=== PATIENT | female | born 1970 | race Caucasian/White ===

== ENCOUNTER 2017-11-27 00:13 | Observation (INO) ==
--- NOTE | 2017-11-27 00:28 | ED ---
HPI General Chief complaint: Syncope Stated complaint: medical Time Seen by Provider: 11/27/17 00:20 Source: patient Mode of arrival: ambulatory Limitations: no limitations History of Present Illness HPI narrative: 47yo F with PMH of polycystic ovaries was brought in by her coworker from L&D for syncope. Pt told her coworker she was not feeling well after vomiting and her coworker checked her pulse and it was 150 and then she passed out in her arms for a second. Pt is now awake and alert, said she is still nauseous but feels better. Denies any fever, chest pain, sob, abdominal pain, focal weakness or numbness. Pt had gastric band in 2009. Denies any cardiac history. Related Data Home Medications Medication Instructions Recorded Confirmed No Known Home Medications 11/27/17 11/27/17 Allergies Allergy/AdvReac Type Severity Reaction Status Date / Time No Known Allergies Allergy Unverified 11/27/17 00:27 Review of Systems ROS: all other systems reviewed are negative [facility] Medical History Medical History Hx of renal calculi (Acute) Surgical History Surgical History Hx of section (Acute) Hx of laparoscopic gastric banding (Acute) Social History Social History Substance History: No History of Abuse Second Hand Smoke Exposure: Yes Smoking Status: Current every day smoker Tobacco Type: Cigarettes How Often Do You Have a Drink Containing Alcohol: Monthly or less Recent Travel in [facility] within the Last 8 Weeks: No Recent Out of Country Travel within the Last 8 Weeks: No Exam Narrative Exam Narrative: GENERAL: 47yo F in mild distress. SKIN: Focused skin assessment warm/dry. HEAD: Atraumatic. Normocephalic. EYES: Pupils equal and round at 3mm bilaterally. EOMI. ENT: No nasal bleeding or discharge. Mucous membranes pink and moist. NECK: Trachea midline. No JVD. CARDIOVASCULAR: Regular rate and rhythm. No murmur appreciated. RESPIRATORY: No accessory muscle use. Clear to auscultation. Breath sounds equal bilaterally. GASTROINTESTINAL: Abdomen soft, non-tender, nondistended. MUSCULOSKELETAL: No obvious deformities. No clubbing. No cyanosis. No edema. NEUROLOGICAL: Awake and alert. No obvious cranial nerve deficits. Motor grossly within normal limits in all extremities. Sensation intact. Normal speech. PSYCHIATRIC: Appropriate mood and affect; insight and judgment normal. Course Initial Documented Vital Signs Temperature 98.3 F 11/27/17 00:18 Pulse Rate 83 11/27/17 00:18 Respiratory Rate 18 11/27/17 00:18 Blood Pressure 123/79 11/27/17 00:18 Pulse Oximetry 100 11/27/17 00:18 Last Documented Vital Signs Temperature 98.4 F 11/27/17 19:56 Pulse Rate 64 11/27/17 19:56 Respiratory Rate 19 11/27/17 19:56 Blood Pressure 118/69 11/27/17 19:56 Pulse Oximetry 98 11/27/17 19:56 Medical Decision Making MDM Narrative Medical decision making narrative: 47yo F was brought down from L&D after vomiting, and having a syncopal episode. Pt's heart rate was normal when she arrived in the ED. Diffuse ST depressions on EKG. Labs reviewed, WBC 11.6. H/ H low at 7.8/26.3, said that is slightly lower than her baseline. Potassium is low at 2.6. Pt given zofran and then 25mEq KCl PO. Also started pt on 20mEq of KCl IV. Pt then vomited again and given reglan. Pt still has a second 20mEq KCl IV but is vomiting so will observed her on telemetry. Pt is complaining of mild headache that feels like her usual headache and GERD. Given acetaminophen. Discussed with resident physician and accepted to Dr. Kapadia' s service. Medical Screen Exam Complete: Yes Emergency Medical Condition: Yes Differential Diagnosis Differential Diagnosis: SVT resolved vs. dehydration vs. electrolyte abnormality Lab Data Result diagrams: 11/27/17 19:08 11/27/17 10:07 Lab Results 11/27/17 11/27/17 11/27/17 Range/Units 00:25 00:25 10:07 WBC 11.6 H (4.0-11.0) th/mm3 RBC 4.23 (4.00-5.30) mil/mm3 Hgb 7.8 L (11.6-15.3) gm/dL Hct 26.3 L (35.0-46.0) % MCV 62.1 L (80.0-100.0) fL MCH 18.5 L (27.0-34.0) pg MCHC 29.7 L (32.0-36.0) % RDW 19.8 H (11.6-17.2) % Plt Count 531 H (150-450) th/mm3 MPV 7.3 (7.0-11.0) fL Neut % (Auto) 59.1 (16.0-70.0) % Lymph % (Auto) 30.7 (9.0-44.0) % Patrick % (Auto) 5.3 (0.0-8.0) % Eos % (Auto) 4.0 (0.0-4.0) % Baso % (Auto) 0.9 (0.0-2.0) % Neut # (Auto) 6.8 (1.8-7.7) th/mm3 Lymph # (Auto) 3.5 (1.0-4.8) th/mm3 Patrick # (Auto) 0.6 (0.0-0.9) th/mm3 Eos # (Auto) 0.5 H (0.0-0.4) th/mm3 Baso # (Auto) 0.1 (0.0-0.2) th/mm3 WBC Differential . Differential Comment Auto diff final Sodium 142 146 H (136-145) meq/L Potassium 2.6 L* 3.5 D (3.5-5.1) meq/L Chloride 101 110 H D (98-107) meq/L Carbon Dioxide 28.4 27.3 (21.0-32.0) meq/L Anion Gap 13 9 (5-15) meq/L BUN 14 11 (7-18) mg/dL Creatinine 0.74 0.47 L (0.50-1.00) mg/dL Estimated GFR 84 L Greater than 89 (>89) mL/min Random Glucose 77 67 L (74-106) mg/dL Calcium 9.5 8.2 L D (8.5-10.1) mg/dL Magnesium 1.5 (1.5-2.5) mg/dL Troponin I Less than 0.02 L (0.02-0.05) ng/mL Lipase 153 (73-393) U/L TSH (0.358-3.740) uIU/mL Blood Type Antibody Screen MTS Gel Crossmatch 11/27/17 11/27/17 11/27/17 Range/Units 10:07 10:07 11:40 WBC 9.5 (4.0-11.0) th/mm3 RBC 3.51 L (4.00-5.30) mil/mm3 Hgb 6.6 L* (11.6-15.3) gm/dL Hct 22.2 L (35.0-46.0) % MCV 63.3 L (80.0-100.0) fL MCH 18.7 L (27.0-34.0) pg MCHC 29.6 L (32.0-36.0) % RDW 20.1 H (11.6-17.2) % Plt Count 352 D (150-450) th/mm3 MPV 7.2 (7.0-11.0) fL Neut % (Auto) 67.9 (16.0-70.0) % Lymph % (Auto) 21.8 (9.0-44.0) % Patrick % (Auto) 4.7 (0.0-8.0) % Eos % (Auto) 5.0 H (0.0-4.0) % Baso % (Auto) 0.6 (0.0-2.0) % Neut # (Auto) 6.4 (1.8-7.7) th/mm3 Lymph # (Auto) 2.1 (1.0-4.8) th/mm3 Patrick # (Auto) 0.4 (0.0-0.9) th/mm3 Eos # (Auto) 0.5 H (0.0-0.4) th/mm3 Baso # (Auto) 0.1 (0.0-0.2) th/mm3 WBC Differential . Differential Comment Auto diff final Sodium (136-145) meq/L Potassium (3.5-5.1) meq/L Chloride (98-107) meq/L Carbon Dioxide (21.0-32.0) meq/L Anion Gap (5-15) meq/L BUN (7-18) mg/dL Creatinine (0.50-1.00) mg/dL Estimated GFR (>89) mL/min Random Glucose (74-106) mg/dL Calcium (8.5-10.1) mg/dL Magnesium 1.5 (1.5-2.5) mg/dL Troponin I Less than 0.02 L (0.02-0.05) ng/mL Lipase (73-393) U/L TSH 2.250 (0.358-3.740) uIU/mL Blood Type Antibody Screen MTS Gel Crossmatch 11/27/17 11/27/17 11/27/17 Range/Units 19:08 19:08 20:23 WBC (4.0-11.0) th/mm3 RBC (4.00-5.30) mil/mm3 Hgb 6.9 L* (11.6-15.3) gm/dL Hct 23.6 L (35.0-46.0) % MCV (80.0-100.0) fL MCH (27.0-34.0) pg MCHC (32.0-36.0) % RDW (11.6-17.2) % Plt Count (150-450) th/mm3 MPV (7.0-11.0) fL Neut % (Auto) (16.0-70.0) % Lymph % (Auto) (9.0-44.0) % Patrick % (Auto) (0.0-8.0) % Eos % (Auto) (0.0-4.0) % Baso % (Auto) (0.0-2.0) % Neut # (Auto) (1.8-7.7) th/mm3 Lymph # (Auto) (1.0-4.8) th/mm3 Patrick # (Auto) (0.0-0.9) th/mm3 Eos # (Auto) (0.0-0.4) th/mm3 Baso # (Auto) (0.0-0.2) th/mm3 WBC Differential Differential Comment Sodium (136-145) meq/L Potassium (3.5-5.1) meq/L Chloride (98-107) meq/L Carbon Dioxide (21.0-32.0) meq/L Anion Gap (5-15) meq/L BUN (7-18) mg/dL Creatinine (0.50-1.00) mg/dL Estimated GFR (>89) mL/min Random Glucose (74-106) mg/dL Calcium (8.5-10.1) mg/dL Magnesium (1.5-2.5) mg/dL Troponin I (0.02-0.05) ng/mL Lipase (73-393) U/L TSH (0.358-3.740) uIU/mL Blood Type B Positive B Positive Antibody Screen Negative MTS Gel Crossmatch See Detail ECG Data EKG Prior to Arrival: No Attestation: I personally reviewed and interpreted this ECG as follows: Interpretation: NSR 90bpm. Normal axis. ST depression diffusely. Discharge Plan Discharge Disposition Patient Disposition: 30 Still Patient Discharge Condition Condition: Stable Discharge Order Discharge Orders: Discharge Order (Routine); Ordered 11/27/17 Ordered By: Annie Sparks Discharge Details Anticipated Discharge Date: 11/27/17 Diagnosis: Acute hypokalemia Physicians Team ED Provider: Jennifer Copeland Primary Care Provider: Rosalva Kapadia Attending Provider: Rosalva Kapadia Status ED Status: Left Department Discharge Information Discharge Date/Time: 11/27/17 08:00
[2017-11-27] MEDS ORDERED: Sod Chloride 0.9% Inj 1,000 ML IV.SIG SCH ×2 (00:30→03:00)
[2017-11-27 00:49] LABS: Baso # (Auto) 0.1 th/mm3 (0.0-0.2); Baso % (Auto) 0.9 % (0.0-2.0); Eos # (Auto) 0.5 th/mm3 (0.0-0.4); Hematocrit 26.3 % (35.0-46.0); Hemoglobin 7.8 gm/dL (11.6-15.3); Lymph # (Auto) 3.5 th/mm3 (1.0-4.8); Lymph % (Auto) 30.7 % (9.0-44.0); Mean Corpuscular Hemoglobin 18.5 pg (27.0-34.0); Mean Corpuscular Volume 62.1 fL (80.0-100.0); Mean Platelet Volume 7.3 fL (7.0-11.0); Mono # (Auto) 0.6 th/mm3 (0.0-0.9); Mono % (Auto) 5.3 % (0.0-8.0); Neut # (Auto) 6.8 th/mm3 (1.8-7.7); Neut % (Auto) 59.1 % (16.0-70.0); Platelet Count 531 th/mm3 (150-450); Red Blood Count 4.23 mil/mm3 (4.00-5.30); Red Cell Distribution Width 19.8 % (11.6-17.2); White Blood Count 11.6 th/mm3 (4.0-11.0)
[2017-11-27 00:53] LABS: Mean Corpuscular HGB Conc 29.7 % (32.0-36.0)
[2017-11-27 01:30] LABS: Anion Gap 13 meq/L (5-15); Blood Urea Nitrogen 14 mg/dL (7-18); Calcium 9.5 mg/dL (8.5-10.1); Carbon Dioxide 28.4 meq/L (21.0-32.0); Chloride 101 meq/L (98-107); Glomerular Filtration Rate 84 mL/min (>89); Glucose,Random 77 mg/dL (74-106); Lipase 153 U/L (73-393); Magnesium 1.5 mg/dL (1.5-2.5); Sodium 142 meq/L (136-145)
[2017-11-27 01:34] LABS: Potassium 2.6 meq/L (3.5-5.1)
[2017-11-27] MEDS ORDERED: Potassium Chloride 25 MEQ Effervescent Tablet PO ONE (01:55)
[2017-11-27] MEDS: Potassium Chlor 20 mEq Premix 20 MEQ/100 ML PIGGYBACK IV.SIG SCH ×2 (02:55→05:25)
[2017-11-27] MEDS ORDERED: Acetaminophen 500 MG Tablet PO ONE (04:54)
[2017-11-27] MEDS ORDERED: Metoclopramide Inj 10 MG in Sodium Chlor 0.9% Inj 50 ML IV.SIG ONE (05:10)
--- NOTE | 2017-11-27 05:55 | P.HPFP ---
History of Present Illness Primary Care Physician: Rosalva Kapadia MD <Rosalva Kapadia - 11/27/17 21:16> Rosalva Kapadia MD <Mera Coreas - 11/27/17 05:55> Chief Complaint: syncope <Mera Coreas - 11/27/17 07:00> History of Present Illness: Ms. Devries is a 47-year-old white female with a PMH of gastric band surgery presenting to the ED due to syncope. She states that earlier this evening she ate which led her to feel nauseous. She then started vomiting. After she was finished vomiting, she felt that her heart rate was erratic so she called her coworker for help. On her way to the ED in a wheelchair she passed out for a few seconds. However, she does not remember this. She did not fall, she did not lose consciousness. While in the ED she vomited again after getting KCl effervescent. She states for the past few weeks she has been vomiting, especially after eating , almost every day (number of times depends on how many meals she has had that day). Every once in a while she feels palpitations. She also sometimes feels dizzy and lightheaded especially with standing up too quickly. 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 smokes ~1/2 ppd Alcohol occasionally Illicit drugs none <Mera Coreas - 11/27/17 08:25> - Diagnosis (1) Hypokalemia (2) Anemia (3) Vomiting (4) Syncope (5) Hx of laparoscopic gastric banding (6) Nutrition, metabolism, and development symptoms (7) DVT prophylaxis <Rosalva Kapadia - 11/27/17 21:16> (1) Hypokalemia (2) Vomiting (3) Syncope (4) Hx of laparoscopic gastric banding (5) Nutrition, metabolism, and development symptoms (6) DVT prophylaxis <Mera Coreas 11/27/17 08:16> Review of Systems Constitutional: Denies chills, Denies fever(s) <Mera Coreas 11/27/17 05:55> Eyes: Denies blurry vision <Mera Coreas 11/27/17 05:55> Ears, Nose, Mouth, and Throat: Denies difficulty swallowing <Mera Coreas 05:55> Cardiovascular: Denies chest pain <Mera Coreas 11/27/17 05:55> Respiratory: Denies shortness of breath <Mera Coreas 11/27/17 05:55> Gastrointestinal: Denies abdominal pain, Denies change in bowel habits <Mera Coreas 11/27/17 05:55> Genitourinary: Denies difficulty starting urination <Mera Coreas 11/27/17 05:55> Musculoskeletal: Denies body aches, Denies muscle cramps <Mera Coreas 11/27 05:55> Skin/Breast: Denies rash <Mera Coreas 11/27/17 05:55> Neurologic: Reports headache(s) (went away) <Mera Coreas 11/27/17 05:55> PMFSH - History History Provided By: Patient, Friend <Mera Coreas 11/27/17 05:55> - Medical History Medical History: Medical History (Last Updated 11/27/17 @ 00:22 by Virgie Elliott RN) Hx of renal calculi <Rosalva Kapadia 11/27/17 21:16> Medical History (Last Updated 11/27/17 @ 00:22 by Virgie Elliott, FEI) Hx of renal calculi <Mera Coreas 11/27/17 05:55> - Surgical History Surgical History: Surgical History (Last Updated 11/27/17 @ 00:22 by Virgie Elliott, FEI) Hx of section Hx of laparoscopic gastric banding <Rosalva Kapadia 11/27/17 21:16> Surgical History (Last Updated 11/27/17 @ 00:22 by Virgie Elliott, FEI) Hx of section Hx of laparoscopic gastric banding <Mera Coreas 11/27/17 05:55> - Tobacco History Second Hand Smoke Exposure: Yes <Mera Coreas 11/27/17 05:55> Tobacco Use In Past 30 Days: Yes <Mera Coreas 11/27/17 05:55> Smoking Status: Current every day smoker <Mera Coreas 11/27/17 05:55> Tobacco Type: Cigarettes <Mera Coreas 11/27/17 05:55> - Alcohol History How Often Do You Have a Drink Containing Alcohol: Monthly or less <Mera Coreas 11/27/17 05:55> - Substance Use History Substance History: No History of Abuse <Mera Coreas 11/27/17 05:55> - Travel History Recent Travel in the [facility] Within the Last 8 Weeks: No <Mera Coreas 11/27/17 05:55> Recent Travel Out of the Country Within the Last 8 Weeks: No <Mera Coreas 11/27/17 05:55> - Immunization History Tetanus Immunization: <5 Years <Mera Coreas 11/27/17 05:55> Hx Influenza Vaccine This Season: No <Mera Coreas 11/27/17 05:55> Medications and Allergies Allergies Allergy/AdvReac Type Severity Reaction Status Date / Time No Known Allergies Allergy Unverified 11/27/17 00:27 <Rosalva Kapadia - 11/27/17 21:16> Home Medications Medication Instructions Recorded Confirmed Type No Known Home Medications 11/27/17 11/27/17 History <Rosalva Kapadia - 11/27/17 21:16> Active Medications: Active Medications Sodium Chloride (Ns Inj) 1,000 mls @ 0 mls/hr IV.SIG BOLUS ABELARDO Last Infusion: 11/27/17 01:52 Dose: Infused Sodium Chloride (Ns Inj) 1,000 mls @ 0 mls/hr IV.SIG BOLUS ABELARDO Last Admin: 11/27/17 03:07 Dose: 1,000 mls/hr Sodium Chloride (Ns Inj) 1,000 mls @ 95 mls/hr IV.CONT .[id number] ABELARDO Last Admin: 11/27/17 09:19 Dose: 95 mls/hr Sodium Chloride (Ns Inj) 250 mls @ 15 mls/hr IV.SIG ONCE ABELARDO Stop: 11/28/17 05:39 Metoclopramide HCl (Reglan Inj) 5 mg IV.PUSH Q6HR PRN; Protocol PRN Reason: NAUSEA OR VOMITING Pantoprazole Sodium (Protonix Inj) 40 mg IV.PUSH Q24H ABELARDO Last Admin: 11/27/17 09:18 Dose: 40 mg <Rosalva Kapadia - 11/27/17 21:16> Active Medications Sodium Chloride (Ns Inj) 1,000 mls @ 0 mls/hr IV.SIG BOLUS ABELARDO Last Infusion: 11/27/17 01:52 Dose: Infused Potassium Chloride (Kcl 20 Meq Premix Inj) 20 meq in 100 mls @ 50 mls/hr IV.SIG Q2H ABELARDO Stop: 11/27/17 05:44 Last Admin: 11/27/17 05:25 Dose: 50 mls/hr Sodium Chloride (Ns Inj) 1,000 mls @ 0 mls/hr IV.SIG BOLUS ABELARDO Last Admin: 11/27/17 03:07 Dose: 1,000 mls/hr <Mera Coreas - 11/27/17 05:55> Exam Vital signs: Vital Signs 11/27/17 00:18 11/27/17 00:23 11/27/17 04:23 Temperature 98.3 F Pulse Rate 83 84 60 Respiratory Rate 18 18 18 Blood Pressure 123/79 123/79 140/82 Pulse Oximetry 100 100 100 11/27/17 07:15 11/27/17 08:00 11/27/17 12:00 Temperature 98.2 F 98.7 F Pulse Rate 65 65 68 Respiratory Rate 18 18 16 Blood Pressure 143/73 H 132/72 121/69 Pulse Oximetry 100 97 100 11/27/17 15:42 11/27/17 19:56 Temperature 98.4 F 98.4 F Pulse Rate 76 64 Respiratory Rate 20 19 Blood Pressure 109/66 118/69 Pulse Oximetry 100 98 Intake & Output 11/27/17 11/27/17 11/28/17 06:59 18:59 06:59 Intake Total 1100 / 1100 Balance 1100 / 1100 Weight 55.293 kg Intake: IV 1100 / 1100 KCl 20 mEq Premix Inj 20 meq In 100 / 100 100 ml @ 50 mls/hr IV.SIG Q2H ABELARDO Rx#:[id number] NS Inj 1,000 ML @ Wide Open IV. 1000 / 1000 SIG BOLUS ABELARDO Rx#:[id number] <Rosalva Kapadia - 11/27/17 21:16> Vital Signs 11/27/17 00:18 11/27/17 00:23 11/27/17 04:23 Temperature 98.3 F Pulse Rate 83 84 60 Respiratory Rate 18 18 18 Blood Pressure 123/79 123/79 140/82 Pulse Oximetry 100 100 100 Intake & Output 11/26/17 11/26/17 11/27/17 06:59 18:59 06:59 Intake Total 1100 / 1100 Balance 1100 / 1100 Weight 55.293 kg Intake: IV 1100 / 1100 KCl 20 mEq Premix Inj 20 meq In 100 / 100 100 ml @ 50 mls/hr IV.SIG Q2H ABELARDO Rx#:[id number] NS Inj 1,000 ML @ Wide Open IV. 1000 / 1000 SIG BOLUS ABELARDO Rx#:[id number] <Mera Coreas - 11/27/17 05:55> Narrative: GENERAL: White female sitting up in bed, in no acute distress SKIN: Warm and dry. Multiple tattoos HEAD: Atraumatic. Normocephalic. EYES: No scleral icterus. No injection or drainage. ENT: No nasal bleeding or discharge. Mucous membranes pink and moist. NECK: Trachea midline. No JVD. CARDIOVASCULAR: Regular rate and rhythm. RESPIRATORY: No accessory muscle use. Clear to auscultation. Breath sounds equal bilaterally. GASTROINTESTINAL: Abdomen soft, non-tender, nondistended. 2x2cm port palpable above umbilicus. MUSCULOSKELETAL: Extremities without clubbing, cyanosis, or edema. No obvious deformities. NEUROLOGICAL: Awake and alert. No obvious cranial nerve deficits. Motor grossly within normal limits. Five out of 5 muscle strength in the arms and legs. Normal speech. PSYCHIATRIC: Appropriate mood and affect; insight and judgment normal. <Mera Coreas - 11/27/17 07:00> Results - Labs Result diagrams: 11/27/17 19:08 11/27/17 10:07 <Rosalva Kapadia - 11/27/17 21:16> Abnormal lab results 11/27/17 11/27/17 11/27/17 Range/Units 00:25 00:25 10:07 WBC 11.6 H (4.0-11.0) th/mm3 RBC (4.00-5.30) mil/mm3 Hgb 7.8 L (11.6-15.3) gm/dL Hct 26.3 L (35.0-46.0) % MCV 62.1 L (80.0-100.0) fL MCH 18.5 L (27.0-34.0) pg MCHC 29.7 L (32.0-36.0) % RDW 19.8 H (11.6-17.2) % Plt Count 531 H (150-450) th/mm3 Eos % (Auto) (0.0-4.0) % Eos # (Auto) 0.5 H (0.0-0.4) th/mm3 Sodium 146 H (136-145) meq/L Potassium 2.6 L* (3.5-5.1) meq/L Chloride 110 H D (98-107) meq/L Creatinine 0.47 L (0.50-1.00) mg/dL Estimated GFR 84 L (>89) mL/min Random Glucose 67 L (74-106) mg/dL Calcium 8.2 L D (8.5-10.1) mg/dL Troponin I Less than 0.02 L (0.02-0.05) ng/mL MTS Gel Crossmatch 11/27/17 11/27/17 11/27/17 Range/Units 10:07 11:40 19:08 WBC (4.0-11.0) th/mm3 RBC 3.51 L (4.00-5.30) mil/mm3 Hgb 6.6 L* (11.6-15.3) gm/dL Hct 22.2 L (35.0-46.0) % MCV 63.3 L (80.0-100.0) fL MCH 18.7 L (27.0-34.0) pg MCHC 29.6 L (32.0-36.0) % RDW 20.1 H (11.6-17.2) % Plt Count (150-450) th/mm3 Eos % (Auto) 5.0 H (0.0-4.0) % Eos # (Auto) 0.5 H (0.0-0.4) th/mm3 Sodium (136-145) meq/L Potassium (3.5-5.1) meq/L Chloride (98-107) meq/L Creatinine (0.50-1.00) mg/dL Estimated GFR (>89) mL/min Random Glucose (74-106) mg/dL Calcium (8.5-10.1) mg/dL Troponin I Less than 0.02 L (0.02-0.05) ng/mL MTS Gel Crossmatch See Detail 11/27/17 Range/Units 19:08 WBC (4.0-11.0) th/mm3 RBC (4.00-5.30) mil/mm3 Hgb 6.9 L* (11.6-15.3) gm/dL Hct 23.6 L (35.0-46.0) % MCV (80.0-100.0) fL MCH (27.0-34.0) pg MCHC (32.0-36.0) % RDW (11.6-17.2) % Plt Count (150-450) th/mm3 Eos % (Auto) (0.0-4.0) % Eos # (Auto) (0.0-0.4) th/mm3 Sodium (136-145) meq/L Potassium (3.5-5.1) meq/L Chloride (98-107) meq/L Creatinine (0.50-1.00) mg/dL Estimated GFR (>89) mL/min Random Glucose (74-106) mg/dL Calcium (8.5-10.1) mg/dL Troponin I (0.02-0.05) ng/mL MTS Gel Crossmatch Short CBC 11/27/17 11/27/17 11/27/17 Range/Units 00:25 11:40 19:08 WBC 11.6 H 9.5 (4.0-11.0) th/mm3 Hgb 7.8 L 6.6 L* 6.9 L* (11.6-15.3) gm/dL Hct 26.3 L 22.2 L 23.6 L (35.0-46.0) % Plt Count 531 H 352 D (150-450) th/mm3 BMP 11/27/17 11/27/17 00:25 10:07 Sodium 142 146 H Potassium 2.6 L* 3.5 D Chloride 101 110 H D Carbon Dioxide 28.4 27.3 BUN 14 11 Creatinine 0.74 0.47 L Calcium 9.5 8.2 L D Cardiac Enzymes 11/27/17 11/27/17 Range/Units 00:25 10:07 Troponin I Less than 0.02 L Less than 0.02 L (0.02-0.05) ng/mL <Rosalva Kapadia - 11/27/17 21:16> Abnormal lab results 11/27/17 11/27/17 Range/Units 00:25 00:25 WBC 11.6 H (4.0-11.0) th/mm3 Hgb 7.8 L (11.6-15.3) gm/dL Hct 26.3 L (35.0-46.0) % MCV 62.1 L (80.0-100.0) fL MCH 18.5 L (27.0-34.0) pg MCHC 29.7 L (32.0-36.0) % RDW 19.8 H (11.6-17.2) % Plt Count 531 H (150-450) th/mm3 Eos # (Auto) 0.5 H (0.0-0.4) th/mm3 Potassium 2.6 L* (3.5-5.1) meq/L Estimated GFR 84 L (>89) mL/min Troponin I Less than 0.02 L (0.02-0.05) ng/mL Short CBC 11/27/17 Range/Units 00:25 WBC 11.6 H (4.0-11.0) th/mm3 Hgb 7.8 L (11.6-15.3) gm/dL Hct 26.3 L (35.0-46.0) % Plt Count 531 H (150-450) th/mm3 BMP 11/27/17 00:25 Sodium 142 Potassium 2.6 L* Chloride 101 Carbon Dioxide 28.4 BUN 14 Creatinine 0.74 Calcium 9.5 Cardiac Enzymes 11/27/17 Range/Units 00:25 Troponin I Less than 0.02 L (0.02-0.05) ng/mL <Mera Coreas - 11/27/17 05:55> Caprini VTE Risk Assessment Caprini VTE Risk Assessment: Moderate/High Risk (score >= 2) <Mera Coreas - 11/27/17 07:00> Caprini Risk Assessment Model: Point Value = 1 Point Value = 2 Point Value = 3 Point Value = 5 Age 41-60 Minor surgery BMI > 25 kg/m2 Swollen legs Varicose veins or History of unexplained or recurrent spontaneous Oral contraceptives or hormone replacement Sepsis (< 1 month) Serious lung disease, including pneumonia (< 1 month) Abnormal pulmonary function Acute myocardial infarction Congestive heart failure (< 1 month) History of inflammatory bowel disease Medical patient at bed rest Age 61-74 Arthroscopic surgery Major open surgery (> 45 min) Laparoscopic surgery (> 45 min) Malignancy Confined to bed (> 72 hours) Immobilizing plaster cast Central venous access Age >= 75 History of VTE Family history of VTE Factor V Leiden Prothrombin [id number] Lupus anticoagulant Anticardiolipin antibodies Elevated serum homocysteine Heparin-induced thrombocytopenia Other congenital or acquired thrombophilia Stroke (< 1 month) Elective arthroplasty Hip, pelvis, or leg fracture Acute spinal cord injury (< 1 month) <Rosalva Kapadia - 11/27/17 21:16> Point Value = 1 Point Value = 2 Point Value = 3 Point Value = 5 Age 41-60 Minor surgery BMI > 25 kg/m2 Swollen legs Varicose veins or History of unexplained or recurrent spontaneous Oral contraceptives or hormone replacement Sepsis (< 1 month) Serious lung disease, including pneumonia (< 1 month) Abnormal pulmonary function Acute myocardial infarction Congestive heart failure (< 1 month) History of inflammatory bowel disease Medical patient at bed rest Age 61-74 Arthroscopic surgery Major open surgery (> 45 min) Laparoscopic surgery (> 45 min) Malignancy Confined to bed (> 72 hours) Immobilizing plaster cast Central venous access Age >= 75 History of VTE Family history of VTE Factor V Leiden Prothrombin [id number] Lupus anticoagulant Anticardiolipin antibodies Elevated serum homocysteine Heparin-induced thrombocytopenia Other congenital or acquired thrombophilia Stroke (< 1 month) Elective arthroplasty Hip, pelvis, or leg fracture Acute spinal cord injury (< 1 month) <Mera Coreas - 11/27/17 05:55> Prophylaxis Regimen: Total Risk Factor Score Risk Level Prophylaxis Regimen 0-1 Low Early ambulation 2 Moderate Order ONE of the following: *Sequential Compression Device (SCD) *Heparin 5000 units SQ BID 3-4 Higher Order ONE of the following medications: *Heparin 5000 units SQ TID *Enoxaparin/Lovenox 40 mg SQ daily (WT < 150 kg, CrCl > 30 mL/min) *Enoxaparin/Lovenox 30 mg SQ daily (WT < 150 kg, CrCl > 10-29 mL/min) *Enoxaparin/Lovenox 30 mg SQ BID (WT < 150 kg, CrCl > 30 mL/min) AND/OR *Sequential Compression Device (SCD) 5 or more Highest Order ONE of the following medications: *Heparin 5000 units SQ TID (Preferred with Epidurals) *Enoxaparin/Lovenox 40 mg SQ daily (WT < 150 kg, CrCl > 30 mL/min) *Enoxaparin/Lovenox 30 mg SQ daily (WT < 150 kg, CrCl > 10-29 mL/min) *Enoxaparin/Lovenox 30 mg SQ BID (WT < 150 kg, CrCl > 30 mL/min) AND *Sequential Compression Device (SCD) <Rosalva Kapadia - 11/27/17 21:16> Total Risk Factor Score Risk Level Prophylaxis Regimen 0-1 Low Early ambulation 2 Moderate Order ONE of the following: *Sequential Compression Device (SCD) *Heparin 5000 units SQ BID 3-4 Higher Order ONE of the following medications: *Heparin 5000 units SQ TID *Enoxaparin/Lovenox 40 mg SQ daily (WT < 150 kg, CrCl > 30 mL/min) *Enoxaparin/Lovenox 30 mg SQ daily (WT < 150 kg, CrCl > 10-29 mL/min) *Enoxaparin/Lovenox 30 mg SQ BID (WT < 150 kg, CrCl > 30 mL/min) AND/OR *Sequential Compression Device (SCD) 5 or more Highest Order ONE of the following medications: *Heparin 5000 units SQ TID (Preferred with Epidurals) *Enoxaparin/Lovenox 40 mg SQ daily (WT < 150 kg, CrCl > 30 mL/min) *Enoxaparin/Lovenox 30 mg SQ daily (WT < 150 kg, CrCl > 10-29 mL/min) *Enoxaparin/Lovenox 30 mg SQ BID (WT < 150 kg, CrCl > 30 mL/min) AND *Sequential Compression Device (SCD) <Mera Coreas - 11/27/17 05:55> Assessment and Plan - Assessment (1) Hypokalemia Code(s): E87.6 - Hypokalemia Status: Acute (2) Anemia Code(s): D64.9 - Anemia, unspecified Status: Acute (3) Vomiting Code(s): R11.10 - Vomiting, unspecified Status: Acute (4) Syncope Code(s): R55 - Syncope and collapse Status: Acute (5) Hx of laparoscopic gastric banding Code(s): Z98.84 - Bariatric surgery status Status: Chronic (6) Nutrition, metabolism, and development symptoms Code(s): R63.8 - Other symptoms and signs concerning food and fluid intake Status: Acute (7) DVT prophylaxis Status: Acute <Rosalva Kapadia - 11/27/17 21:16> (1) Hypokalemia Code(s): E87.6 - Hypokalemia Status: Acute Plan: Patient hypokalemic to 2.6 on admission. This is likely due to her frequent vomiting. EKG on admission showed normal sinus rhythm with HR of 90, slight ST depression ED interventions: -K-Lyte effervescent 25 mEq p.o. x1-patient vomited this -KCl 20 mEq IV x2 -Repeat BMP ordered for 0700 (2) Vomiting Code(s): R11.10 - Vomiting, unspecified Status: Acute Plan: Patient with daily vomiting after eating. The underlying cause may need to be investigated. Gastric band surgery is likely. ED interventions: -Status post 21 L NS boluses -Protonix 40 mg p.o. 1 -Zofran ODT 4 mg p.o. 1 -Reglan 10 mg IV 1 Reglan 5 mg IV every 6 hours as needed (3) Syncope Code(s): R55 - Syncope and collapse Status: Acute Plan: Syncopal episode while being wheeled to the ED. Orthostatic hypotension versus vasovagal versus cardiogenic -Orthostatic blood pressures ordered -Continue to monitor for any further sx (4) Hx of laparoscopic gastric banding Code(s): Z98.84 - Bariatric surgery status Status: Chronic Plan: Patient with history of gastric banding in 2009. May be contributing to her frequent vomiting. Patient may need her band adjusted. -Consider speaking with surgery about this issue or have patient follow-up as an outpatient (5) Nutrition, metabolism, and development symptoms Code(s): R63.8 - Other symptoms and signs concerning food and fluid intake Status: Acute Plan: Fluids: NS @ 95 ml/hr Electrolytes: Hypokalemia noted, monitor and replete as needed Nutrition: regular diet GI Prophylaxis: Protonix 40mg IV qD (6) DVT prophylaxis Status: Acute Plan: DVT Prophylaxis: Early ambulation. bilateral SCDs <Mera Coreas - 11/27/17 08:16> - Attending Attestation Patient seen and examined around 1000, discussed with resident team. I agree with assessment and management as documented and discussed with me. Araceli Devries is a 47yo lady admitted for syncope that occurred at work. Work up in the ER revealed hypokalemia likely secondary to recurrent vomiting as well as microcytic anemia. Hemoccult done by resident team was negative for blood. Additional diagnosis: Microcytic anemia: Monitor H/H during hospitalization. Pt denies heavy periods or GI bleeding. Would benefit from work up as an outpatient. Pt declined transfusion as she was asymptomatic at this time. <Rosalva Kapadia - 11/27/17 21:16>
[2017-11-27] MEDS ORDERED: Sod Chloride 0.9% Inj 1,000 ML IV.CONT SCH (06:15)
[2017-11-27] MEDS ORDERED: Pantoprazole Inj 40 MG Vial IV.PUSH SCH (07:00)
--- NOTE | 2017-11-27 07:58 | ECG ---
Date Performed: 11/27/2017 Time Performed: 00:14:55 PTAGE: 47 years EKG: Sinus rhythm NONSPECIFIC ST DEPRESSION ABNORMAL ECG INTERPRETATION BASED ON A DEFAULT AGE OF 89 YEARS NO PREVIOUS TRACING DOCTOR: Jonn Jarquin Interpretating Date/Time 11/27/2017 07:56:24
--- NOTE | 2017-11-27 10:40 | P.PNFP ---
Subjective Interval history: Patient feeling better this morning. She reports that last night was the first time she has ever passed out. She has been vomitting after every meal (both solid and liquid) for the past month. She states that the food does not pass into her stomach it immediately refluxes up, causes nausea and she vomits. She denies dizziness, palpitations, abdominal pain, diarrhea, chest pain, shortness of breath. She has not had a bowel movement in 2 days but this is normal for her. She reports that she follow with Dr. Cabello in [place] for her bariatric gastric band. She has not seen him in 2 years. Results - Labs Result diagrams: 11/27/17 00:25 11/27/17 00:25 Abnormal lab results 11/27/17 11/27/17 Range/Units 00:25 00:25 WBC 11.6 H (4.0-11.0) th/mm3 Hgb 7.8 L (11.6-15.3) gm/dL Hct 26.3 L (35.0-46.0) % MCV 62.1 L (80.0-100.0) fL MCH 18.5 L (27.0-34.0) pg MCHC 29.7 L (32.0-36.0) % RDW 19.8 H (11.6-17.2) % Plt Count 531 H (150-450) th/mm3 Eos # (Auto) 0.5 H (0.0-0.4) th/mm3 Potassium 2.6 L* (3.5-5.1) meq/L Estimated GFR 84 L (>89) mL/min Troponin I Less than 0.02 L (0.02-0.05) ng/mL Short CBC 11/27/17 Range/Units 00:25 WBC 11.6 H (4.0-11.0) th/mm3 Hgb 7.8 L (11.6-15.3) gm/dL Hct 26.3 L (35.0-46.0) % Plt Count 531 H (150-450) th/mm3 BMP 11/27/17 00:25 Sodium 142 Potassium 2.6 L* Chloride 101 Carbon Dioxide 28.4 BUN 14 Creatinine 0.74 Calcium 9.5 Cardiac Enzymes 11/27/17 Range/Units 00:25 Troponin I Less than 0.02 L (0.02-0.05) ng/mL Physical Exam Vital signs: Vital Signs 11/27/17 00:18 11/27/17 00:23 11/27/17 04:23 Temperature 98.3 F Pulse Rate 83 84 60 Respiratory Rate 18 18 18 Blood Pressure 123/79 123/79 140/82 Pulse Oximetry 100 100 100 11/27/17 07:15 11/27/17 08:00 Temperature 98.2 F Pulse Rate 65 59 L Respiratory Rate 18 18 Blood Pressure 143/73 H 132/72 Pulse Oximetry 100 97 Intake & Output 11/26/17 11/27/17 11/27/17 18:59 06:59 18:59 Intake Total 1100 / 1100 Balance 1100 / 1100 Weight 55.293 kg Intake: IV 1100 / 1100 KCl 20 mEq Premix Inj 20 meq In 100 / 100 100 ml @ 50 mls/hr IV.SIG Q2H ABELARDO Rx#:[id number] NS Inj 1,000 ML @ Wide Open IV. 1000 / 1000 SIG BOLUS ABELARDO Rx#:[id number] Narrative: GENERAL: well-nourished, well developed, in no acute distress SKIN: intact, no rash present HEENT: neck supple CARDIO: Regular rate and rhythm, no murmurs RESP: Clear to auscultation bilaterally, no wheezing, rales, crackles ABD: normal bowel sounds, soft, not distended, no tenderness, palpable gastric band port present near umbilicus Assessment and Plan - Assessment (1) Hypokalemia Code(s): E87.6 - Hypokalemia Status: Acute Plan: Patient hypokalemic to 2.6 on admission. This is likely due to her frequent vomiting. EKG on admission showed normal sinus rhythm with HR of 90, slight ST depression ED interventions: -K-Lyte effervescent 25 mEq p.o. x1-patient vomited this -KCl 20 mEq IV x2 -Repeat BMP- PENDING -Repeat EKG-PENDING (2) Anemia Code(s): D64.9 - Anemia, unspecified Status: Acute Plan: Patient with Hbg 7.8 and Hct 26.3 on admission. Patient did not have gastric sleeve surgery so this is not a consequence of her surgery. Gastric band was placed but all anatomy remains for normal iron absorption. May be due to hypovolemic status. Patient denies blood in vomitus. -Will do rectal to rule out lower GI bleeding. (3) Vomiting Code(s): R11.10 - Vomiting, unspecified Status: Acute Plan: Patient with daily vomiting after eating. The underlying cause may need to be investigated. Gastric band slippage is likely. Patient prefers to follow up with Dr. Cabello in [place]. ED interventions: -Status post 21 L NS boluses -Protonix 40 mg p.o. 1 -Zofran ODT 4 mg p.o. 1 -Reglan 10 mg IV 1 -Reglan 5 mg IV every 6 hours as needed - Will trial Ensure since this is a chronic problem likely due to gastric band. Patient will need nutrition until she is able to see her surgeon in [place]. (4) Syncope Code(s): R55 - Syncope and collapse Status: Acute Plan: Syncopal episode while being wheeled to the ED. Orthostatic hypotension versus vasovagal versus cardiogenic. My suspicion is this is due to hypovolemic status of the patient and orthostatic etiology. I do not think a full syncopal workup is necessary at this time. Patient is hypovolemic and hypokalemic which can cause syncopal episodes. -Orthostatic blood pressures ordered -Continue to monitor for any further sx (5) Hx of laparoscopic gastric banding Code(s): Z98.84 - Bariatric surgery status Status: Chronic Plan: Patient with history of gastric banding in 2009. Likely contributing to her frequent vomiting. Patient has not seen Dr. Cabello for 2 years. She will need to follow up with him. -Patient will need to follow-up as an outpatient with Dr. Cabello (6) Nutrition, metabolism, and development symptoms Code(s): R63.8 - Other symptoms and signs concerning food and fluid intake Status: Acute Plan: Fluids: NS @ 95 ml/hr Electrolytes: Hypokalemia noted, monitor and replete as needed Nutrition: regular diet as tolerated, will try ensure GI Prophylaxis: Protonix 40mg IV qD (7) DVT prophylaxis Status: Acute Plan: DVT Prophylaxis: Early ambulation. bilateral SCDs - Assessment and Plan Discharge planning: Patient will likely need a follow up CBC, BMP in 1 week after discharge from hospital since these issues are likely chronic.
[2017-11-27 10:47] LABS: Anion Gap 9 meq/L (5-15); Blood Urea Nitrogen 11 mg/dL (7-18); Calcium 8.2 mg/dL (8.5-10.1); Carbon Dioxide 27.3 meq/L (21.0-32.0); Chloride 110 meq/L (98-107); Glomerular Filtration Rate Greater Than 89 mL/min (>89); Glucose,Random 67 mg/dL (74-106); Potassium 3.5 meq/L (3.5-5.1); Sodium 146 meq/L (136-145)
[2017-11-27 11:32] LABS: Magnesium 1.5 mg/dL (1.5-2.5)
[2017-11-27 11:57] LABS: Baso # (Auto) 0.1 th/mm3 (0.0-0.2); Baso % (Auto) 0.6 % (0.0-2.0); Eos # (Auto) 0.5 th/mm3 (0.0-0.4); Lymph # (Auto) 2.1 th/mm3 (1.0-4.8); Lymph % (Auto) 21.8 % (9.0-44.0); Mean Corpuscular Hemoglobin 18.7 pg (27.0-34.0); Mean Corpuscular Volume 63.3 fL (80.0-100.0); Mean Platelet Volume 7.2 fL (7.0-11.0); Mono # (Auto) 0.4 th/mm3 (0.0-0.9); Mono % (Auto) 4.7 % (0.0-8.0); Neut # (Auto) 6.4 th/mm3 (1.8-7.7); Neut % (Auto) 67.9 % (16.0-70.0); Platelet Count 352 th/mm3 (150-450); Red Blood Count 3.51 mil/mm3 (4.00-5.30); Red Cell Distribution Width 20.1 % (11.6-17.2); White Blood Count 9.5 th/mm3 (4.0-11.0)
[2017-11-27 11:58] LABS: Mean Corpuscular HGB Conc 29.6 % (32.0-36.0)
[2017-11-27 12:02] LABS: Hematocrit 22.2 % (35.0-46.0); Hemoglobin 6.6 gm/dL (11.6-15.3)
[2017-11-27] MEDS ORDERED: Sodium Chlor 0.9% Inj 250 ML IV.SIG SCH (13:00)
[2017-11-27 15:46] VITALS: TEMP 98.4
[2017-11-27 19:57] LABS: Hematocrit 23.6 % (35.0-46.0); Hemoglobin 6.9 gm/dL (11.6-15.3)
[2017-11-27 20:00] VITALS: BP 118/69; PULSE 64; RESP 19; O2SAT 98
--- NOTE | 2017-11-27 20:31 | P.PNADD ---
Addendum to Inpatient Note Reason for Addendum: Additional Documentation Additional information: Patient's repeat H&H came back at 1900. Hemoglobin was 6.9 and hematocrit was 23.6. This is stable from the labs drawn at 11:40 AM. Earlier today patient refused blood transfusion. After receiving the repeat H&H results, the resident team went to educate patient on the risks of anemia and the benefits of transfusion. Patient still refuses the transfusion after thorough discussion and answering all of her questions. Patient was educated on the importance of following up with her PCP, surface grinder, and bariatric surgeon for her anemia, syncope, vomiting and possible gastric band slippage. She was discharged with follow up instructions.
== END 2017-11-27 21:14 | disposition home or self-care (01) ==
LOC: NEPC 00:13 → NEDA 00:13 → NEPGCP 07:57
PROVIDERS: ADMIT Family Medicine; ATTEND Family Medicine